=== PATIENT | female | born 1970 | race African-American/Black ===

== ENCOUNTER 2019-11-06 14:50 | Outpatient (CLI) | payer BC, SELFPAY ==
--- NOTE | ~2019-11-06 | MR_ITS ---
EXAMINATION: MR lumbar spine wo con EXAM DATE: 11/06/2019 15:52 INDICATION: Right leg pain, low back pain. Stroke in December. Lies right side. TECHNIQUE: Multi-sequential, multiplanar MR images of the lumbar spine were obtained without contrast . Sagittal T1, T2, T2 fat saturation images. Axial T2 weighted images. There is no prior study for comparison. FINDINGS: The vertebral bodies are aligned in the AP dimension. There is moderate disc disease L4-5, mild at the 2 levels above. The conus medullaris terminates at the L1/2 level and has normal signal i ntensity and morphology. There are no suspicious marrow signal abnormalities. Mild lumbar levoscolio sis. Paraspinal soft tissue is unremarkable. Level by level evaluation: T12-L1: Disc does not extend beyond the endplate margin. Facet arthropathy: Mild. Neural foraminal stenosis: No stenosis. Central canal stenosis: No stenosis. L1-L2: There is a minimal diffuse disc bulge. Facet arthropathy: Mild. Neural foraminal stenosis: No stenosis. Central canal stenosis: No stenosis. L2-L3: There is a mild diffuse disc bulge. Facet arthropathy: Mild to moderate. Neural foraminal stenosis: No stenosis. Central canal stenosis: No stenosis. L3-L4: There is a mild diffuse disc bulge. Facet arthropathy: Mild to moderate. Neural foraminal stenosis: Mild bilateral. Central canal stenosis: Mild. L4-L5: There is a mild to moderate diffuse disc bulge. Facet arthropathy: Moderate. Neural foraminal stenosis: Moderate right, mild to moderate left. Central canal stenosis: Mild to moderate. L5-S1: There is a mild diffuse disc bulge. Facet arthropathy: Mild to moderate. Neural foraminal stenosis: No stenosis. Central canal stenosis: No stenosis. IMPRESSION: 1. L4-5 moderate disc disease and right neural foraminal stenosis. 2. Lesser spondylosis above. Reviewed, dictated and finalized at location B.
== END 2019-11-06 14:51 | disposition home or self-care (01) ==
PROVIDERS: PCP Nurse Practitioner Family; Visit Provider Student in an Organized Health Care Education/Training Program
DX: M51.9 Unspecified thoracic, thoracolumbar and lumbosacral intervertebral disc disorder (principal); M48.061 Spinal stenosis, lumbar region without neurogenic claudication
CPT/HCPCS: 72148

== ENCOUNTER 2021-01-09 00:21 | Day surgery (SDC) | payer BC, SELFPAY ==
[2020-12-25 13:48] VITALS: BMI 49.6
[2021-01-09 12:51] VITALS: BMI 50.5
[2021-01-09 13:13] VITALS: BP 135/75; PULSE 62; RESP 18; TEMP 36.5; O2SAT 95
[2021-01-09 13:16] LABS: Glucose Point of Care 107 mg/dl (65-105)
[2021-01-09] MEDS: LACTATED RINGERS 1,000 ML 150 ML IV CONT (13:28)
--- NOTE | 2021-01-09 13:34 | PM.HPGS ---
History of Present Illness History of Present Illness Consent: Risks, benefits, and alternatives have been discussed and questions answered. Patient agrees to proceed with procedure. Chief complaint: neoplasm screening Narrative: Jessica Monzon is a 50 year old female here for screening colonoscopy Review of Systems Constitutional: Constitutional: Denies headache(s) and Denies weakness Eyes: Eyes: Denies blurry vision ENT: Reports Normal hearing present, Denies headache(s) and Denies neck pain Cardiovascular: Cardiovascular: Denies chest pain and Denies dyspnea Respiratory: Respiratory: Denies dyspnea Gastrointestinal: Gastrointestinal: Reports no additional gastrointestinal complaints Genitourinary: Genitourinary: Denies dysuria Musculoskeletal: Musculoskeletal: Denies neck pain Integumentary/Breasts: Skin/Breast: Denies dry skin Neurologic: Reports Normal hearing present, Denies headache(s) and Denies weakness Psychiatric: Psychiatric: Denies anxiety Endocrine: Endocrine: Denies change in body appearance Hematologic/Lymphatic: Hematologic/Lymphatic: Denies easy bleeding Allergic/Immunologic: Allergic/Immunologic: Denies urticaria PMF Past Medical History Medical History (Updated 01/09/21 @ 13:34 by Clifton Durbin MD) Colon cancer screening Family History Family History (Updated 02/25/16 @ 14:53 by DOCTOR UNKNOWN) Mother Family history of malignant neoplasm of bone Family history of malignant neoplasm of breast in first degree relative Depression Asthma Family history of emphysema Grandparent Family history of cardiovascular disease Social History Social History Smoking packs per day: 0.5 Smoking cigarettes per day: 10.0 Years smoked: 10 Smoking pack-years: 5.00 Smoking status: Former smoker Tobacco type: cigarettes Second hand tobacco smoke exposure: Yes Smoking end date: 03/21/00 Alcohol intake: current Living arrangements: with family Spiritual care concerns: No Meds Home Medications and Allergies Home Medications Medication Instructions Recorded Confirmed Type albuterol sulfate 2 inh INHALATION QID PRN 12/25/20 01/09/21 History aspirin [Aspir-81] 81 mg PO DAILY 12/25/20 01/09/21 History atorvastatin 80 mg PO DAILY 12/25/20 01/09/21 History ferrous sulfate [FeroSul] 325 mg PO DAILY 12/25/20 01/09/21 History hydroxyzine HCl 50 mg PO BID 12/25/20 01/09/21 History lamotrigine 150 mg PO HS 12/25/20 01/09/21 History losartan 50 mg PO DAILY 12/25/20 01/09/21 History metformin 500 mg PO BID 12/25/20 01/09/21 History propranolol 40 mg PO DAILY 12/25/20 01/09/21 History semaglutide [Ozempic] 0.5 mg SUBCUT WEEKLY 12/25/20 01/09/21 History trazodone 150 mg PO HS 12/25/20 01/09/21 History vortioxetine [Trintellix] 5 mg PO DAILY 12/25/20 01/09/21 History Allergies Allergy/AdvReac Type Severity Reaction Status Date / Time No Known Allergies Allergy Unknown Unverified 01/09/21 12:49 Vital Signs Vital Signs - 24 hr 01/09/21 13:13 Temperature 97.7 F Pulse Rate 62 Respiratory Rate 18 Blood Pressure 135/75 Pulse Oximetry 95 Exam Const: General: comfortable and no acute distress HENMT: General nose exam: Normal nares present Eyes: General: appearance normal, both eyes and all related structures Neck: Neck: no JVD Resp: Auscultation: clear to auscultation bilaterally Cardio: Rate: regular rate Rhythm: regular rhythm GI: Inspection: non-distended GI Palp: Yes Soft to palpation Skin: General skin exam: normal color Neuro: General: gait normal Speech: normal speech Extrem: General: normal to inspection Psych: Mental Status: mental status grossly normal Assessment and Plan Assessment and plan (1) Colon cancer screening: Code(s): Z12.11 - Encounter for screening for malignant neoplasm of colon Status: Acute Assessment and Plan: colonoscopy
--- NOTE | 2021-01-09 13:36 | WPDANESEPPF ---
Anes - Initial Pre Proc Eval Procedure: Operation Date: 01/09/21 13:30 Proposed Procedures p Screening Colonoscopy - Clitfon Durbin MD Date/Time: 01/09/21 13:36 Surgeon: Clifton Durbin MD Pre Op Diagnosis: neoplasm screening Patient Data Age: 50 Gender: F Height: 1.83 m Weight: 169 kg Last Vital Signs Temp 97.7 F 01/09/21 13:13 Pulse 62 01/09/21 13:13 Resp 18 01/09/21 13:13 BP 135/75 01/09/21 13:13 Pulse Ox 95 01/09/21 13:13 Allergies Allergy/AdvReac Type Severity Reaction Status Date / Time No Known Allergies Allergy Unknown Unverified 01/09/21 12:49 Home Medications Medication Instructions Recorded Confirmed Type albuterol sulfate 2 inh INHALATION QID PRN 12/25/20 01/09/21 History aspirin [Aspir-81] 81 mg PO DAILY 12/25/20 01/09/21 History atorvastatin 80 mg PO DAILY 12/25/20 01/09/21 History ferrous sulfate [FeroSul] 325 mg PO DAILY 12/25/20 01/09/21 History hydroxyzine HCl 50 mg PO BID 12/25/20 01/09/21 History lamotrigine 150 mg PO HS 12/25/20 01/09/21 History losartan 50 mg PO DAILY 12/25/20 01/09/21 History metformin 500 mg PO BID 12/25/20 01/09/21 History propranolol 40 mg PO DAILY 12/25/20 01/09/21 History semaglutide [Ozempic] 0.5 mg SUBCUT WEEKLY 12/25/20 01/09/21 History trazodone 150 mg PO HS 12/25/20 01/09/21 History vortioxetine [Trintellix] 5 mg PO DAILY 12/25/20 01/09/21 History Laboratory Tests 01/09/21 13:11 POC Capillary Glucose 107 mg/dl H mg/dl (65-105) Patient hx anesthesia problems: none Family hx anesthesia problems: none Results Review: All pre-operative results and documents have been reviewed as part of the pre-operative evaluation. [facility] Past Medical History Medical History (Updated 01/09/21 @ 13:34 by Clifton Durbin MD) Colon cancer screening Family History Family History (Updated 02/25/16 @ 14:53 by DOCTOR UNKNOWN) Mother Family history of malignant neoplasm of bone Family history of malignant neoplasm of breast in first degree relative Depression Asthma Family history of emphysema Grandparent Family history of cardiovascular disease Social History Social History Smoking packs per day: 0.5 Smoking cigarettes per day: 10.0 Years smoked: 10 Smoking pack-years: 5.00 Smoking status: Former smoker Tobacco type: cigarettes Second hand tobacco smoke exposure: Yes Smoking end date: 03/21/00 Alcohol intake: current Living arrangements: with family Spiritual care concerns: No Anes - Eval Final PreProcedure Day of Procedure 01/09/21 13:36 Patient weight: super morbidly obese Heart: regular rate and rhythm Lungs: clear to auscultation Airway: Mallampati scale class III Neurological: alert and oriented Last oral intake: >/= 8 hours ASA classification: IV Emergent: no Anesthetic plan: proceed Anesthesia type and monitoring: general GIVS and standard monitoring Results Review: All pre-operative results and documents have been reviewed as part of the pre-operative evaluation. Informed Consent: The patient's anesthetic plan and its attendant risks and benefits were discussed with the patient/family/POA. Questions were solicited and answers provided to the satisfaction of the patient/family/POA.
[2021-01-09 13:59] VITALS: BP 118/70; PULSE 78; RESP 18; O2SAT 100
[2021-01-09 14:09] VITALS: BP 133/75; PULSE 63; RESP 18; O2SAT 100
[2021-01-09 14:16] VITALS: BP 129/75; PULSE 55; RESP 18; O2SAT 100
== END 2021-01-09 14:30 | disposition home or self-care (01) ==
PROVIDERS: PCP Student in an Organized Health Care Education/Training Program; Visit Provider Internal Medicine Gastroenterology
PROC: 0DJD8ZZ Inspection of Lower Intestinal Tract, Via Natural or Artificial Opening Endoscopic (ICD-10-PCS; CPT 45378; principal; 2021-01-09 13:30)
DX: Z12.11 Encounter for screening for malignant neoplasm of colon (principal); K64.8 Other hemorrhoids; Z79.82 Long term (current) use of aspirin; Z79.84 Long term (current) use of oral hypoglycemic drugs; Z79.51 Long term (current) use of inhaled steroids; Z87.891 Personal history of nicotine dependence; E66.01 Morbid (severe) obesity due to excess calories; Z68.43 Body mass index [BMI] 50.0-59.9, adult
CPT/HCPCS: 45378; 82948; J2704; J7120

== ENCOUNTER 2024-02-08 18:55 | Emergency (ER) | payer BC, SELFPAY ==
--- NOTE | ~2024-02-08 | XR_ITS ---
EXAMINATION: XR chest 2V DATE: 02/08/2024 19:47 INDICATION: Chest pain. TECHNIQUE: Frontal and lateral views of the chest were obtained. COMPARISON: Chest single view 07/26/2016 FINDINGS: There is no pneumonia, pleural effusion, or pneumothorax. The heart size is normal. IMPRESSION: 1. No acute cardiopulmonary disease. Reviewed, dictated and finalized at location A. [employer] INVESTIGATOR
--- NOTE | ~2024-02-08 | CT_ITS ---
EXAMINATION: CT brain wo con DATE: 02/08/2024 19:42 INDICATION: Left hemiparesis. Headache and dizziness. TECHNIQUE: Computed tomography (CT) of the head was performed without intravenous contrast. The mA wa s adjusted according to patient size. Iterative reconstruction technique was employed. The dose-lengt h product was 605.33 mGy-cm. COMPARISON: Head CT 07/28/2016, brain MRI 07/27/2016 FINDINGS: There is no intracranial hemorrhage, acute infarction, or abnormal intracranial mass lesion . The ventricles are normal in size. The paranasal sinuses are clear. The mastoid air cells are hardeep l. The orbits are normal. IMPRESSION: 1. Normal brain. Reviewed, dictated and finalized at location A. [employer] IMPRESSION: 1. Normal brain.
[2024-02-08 18:56] VITALS: BP 184/85; PULSE 85; RESP 18; TEMP 36.8; O2SAT 99
--- NOTE | 2024-02-08 19:00 | ECG_ITS ---
Test Date: 2024-02-08 19:07:02 Measurements Intervals [place] Rate: 71 P: 51 NV: 200 QRS: 15 QRSD: 111 T: 31 QT: 396 QTc: 432 Interpretive Statements SINUS RHYTHM INTRAVENTRICULAR CONDUCTION DELAY CONSIDER INFERIOR INFARCT, AGE INDETERMINATE BASELINE ARTIFACT- V6 ABNORMAL ECG No previous ECG available for comparison Electronically Signed On 02-09-2024 07:35:36 [employer] by Alfredo Rivas D.O.
--- NOTE | 2024-02-08 19:20 | ED.CHESTPAIN ---
HPI - Chest Pain General Chief Complaint: Chest Pain <Stephenie Box APRN - Last Filed: 02/08/24 19:28> Stated Complaint: chest pain, dizzy x 1 wk, seen for cc x 3 <Stephenie Box APRN - Last Filed: 02/08/24 19:28> Time Seen by Provider: 02/08/24 19:15 <Stephenie Box APRN - Last Filed: 02/08/24 19:28> Focused HPI: patient is a 54-year-old female who presents to the ER with high blood pressure, chest pain, headache, dizziness, right arm weakness, bilateral lower extremity numbness that all started on Tuesday. She reports that she went to the ER at [facility] on Tuesday where they did every test and couldn't find anything. Patient reports she takes her medications as scheduled at home and reports that her diabetes has been under control lately. She denies any recent fevers, urinary symptoms, alcohol or drug use. Pt reports she did have vision changes on Tuesday, but reports they have resolved. GENERAL: Well-appearing, well-nourished, and in no acute distress. HEAD: Normocephalic, atraumatic. CHEST: Clear to auscultation. ?No respiratory distress. HEART: Regular rate and rhythm.? NEURO: ?Alert and oriented x3. Decreased strength on L shoulder when pt asked to shrug. Strong human resources services specialist, cranial nerves intact. Patient screened in triage and initial orders placed.? ?Additional care and disposition to be based upon?diagnostic testing and treatment. <Stephenie Box APRN - Last Filed: 02/08/24 19:28> Source: patient <Wale Rosado PA-C - Last Filed: 02/09/24 01:08> Mode of arrival: ambulatory <LEILA Cornejo Last Filed: 02/09/24 01:08> Limitations: no limitations <LEILA Cornejo Last Filed: 02/09/24 01:08> History of Present Illness HPI narrative: Agree with triage note above <Wale Rosado PA-C - Last Filed: 02/09/24 01:08> Related Data Home Medications: Home Medications Medication Instructions Recorded Confirmed albuterol sulfate 90 mcg/actuation 2 inh inhalation QID PRN Dyspnea 12/25/20 01/09/21 aerosol inhaler aspirin 81 mg tablet,delayed 81 mg PO DAILY 12/25/20 01/09/21 release atorvastatin 80 mg tablet 80 mg PO DAILY 12/25/20 01/09/21 ferrous sulfate 325 mg (65 mg 325 mg PO DAILY 12/25/20 01/09/21 iron) tablet (FeroSul) hydroxyzine HCl 50 mg tablet 50 mg PO BID 12/25/20 01/09/21 lamotrigine 100 mg tablet 150 mg PO HS 12/25/20 01/09/21 losartan 50 mg tablet 50 mg PO DAILY 12/25/20 01/09/21 metformin 500 mg tablet,extended 500 mg PO BID 12/25/20 01/09/21 release 24 hr propranolol 40 mg tablet 40 mg PO DAILY 12/25/20 01/09/21 semaglutide 0.25 mg or 0.5 mg (2 0.5 mg subcut WEEKLY 12/25/20 01/09/21 mg/1.5 mL) subcutaneous pen injector (Ozempic) trazodone 150 mg tablet 150 mg PO HS 12/25/20 01/09/21 vortioxetine 5 mg tablet 5 mg PO DAILY 12/25/20 01/09/21 (Trintellix) <Stephenie Box, [place] - Last Filed: 02/08/24 19:28> Allergies/Adverse Reactions: Allergies Allergy/AdvReac Type Severity Reaction Status Date / Time No Known Allergies Allergy Unknown Unverified 01/09/21 12:49 <Stephenie Box APRN - Last Filed: 02/08/24 19:28> Review of Systems Review of Systems: All systems as dictated in HPI <Wale Rosado PA-C - Last Filed: 02/09/24 01:08> [facility] Past Medical History Medical History: Medical History (Updated 02/09/24 @ 00:01 by Background Ivelisse) Colon cancer screening <Stephenie Box APRN - Last Filed: 02/08/24 19:28> Family History Family History: Family History (Updated 02/25/16 @ 14:53 by DOCTOR UNKNOWN) Mother Family history of malignant neoplasm of bone Family history of malignant neoplasm of breast in first degree relative Depression Asthma Family history of emphysema Grandparent Family history of cardiovascular disease <Stephenie Box APRN - Last Filed: 02/08/24 19:28> Social History Social History: Social History Smoking packs per day: 0.5 Smoking cigarettes per day: 10.0 Years smoked: 10 Smoking pack-years: 5.00 Smoking status: Former smoker Tobacco type: cigarettes Second hand tobacco smoke exposure: Yes Smoking end date: 03/21/00 Alcohol intake: current Living arrangements: with family Spiritual care concerns: No <Stephenie Box APRN - Last Filed: 02/08/24 19:28> Exam Narrative: GENERAL: Well-appearing, well-nourished, and in no acute distress. HEAD: Normocephalic, atraumatic. EYES: PERRLA and EOMI. ENT: Nares clear, no rhinorrhea or epistaxis. Mucous membranes moist. Oropharynx without tonsillar hypertrophy exudate or other lesions. NECK: Supple. No adenopathy or masses. CHEST: No respiratory distress. Clear to auscultation. No wheezes rales or rhonchi HEART: Regular rate and rhythm. No murmur heard. Normal peripheral pulses. ABDOMEN: Soft, nontender, nondistended, normal active bowel sounds. MSK: Normal range of motion. No edema. SKIN: Warm, dry, no rash. NEURO: Alert and oriented x4. No focal deficits. PSYCH: Anxious mood. Poor eye contact. Appropriate affect. Cooperative. <Wale Rosado PA-C - Last Filed: 02/09/24 01:08> Course Vital Signs Vital signs: Vital Signs Temperature 98.3 F 02/08/24 18:56 Pulse Rate 85 02/08/24 18:56 Respiratory Rate 18 02/08/24 18:56 Blood Pressure 184/85 H 02/08/24 18:56 Pulse Oximetry 99 02/08/24 18:56 Oxygen Delivery Room Air 02/08/24 18:56 Temperature 98.3 F 02/08/24 18:56 Pulse Rate 72 02/08/24 23:08 Respiratory Rate 17 02/08/24 23:08 Blood Pressure 176/80 H 02/08/24 23:08 Pulse Oximetry 99 02/08/24 23:08 Oxygen Delivery Room Air 02/08/24 23:07 <Stephenie Box APRN - Last Filed: 02/08/24 19:28> Vital Signs Temperature 98.3 F 02/08/24 18:56 Pulse Rate 85 02/08/24 18:56 Respiratory Rate 18 02/08/24 18:56 Blood Pressure 184/85 H 02/08/24 18:56 Pulse Oximetry 99 02/08/24 18:56 Oxygen Delivery Room Air 02/08/24 18:56 Temperature 98.3 F 02/08/24 18:56 Pulse Rate 72 02/08/24 23:08 Respiratory Rate 17 02/08/24 23:08 Blood Pressure 176/80 H 02/08/24 23:08 Pulse Oximetry 99 02/08/24 23:08 Oxygen Delivery Room Air 02/08/24 23:07 <Wale Rosado PA-C - Last Filed: 02/09/24 01:08> MDM - Chest Pain MDM Narrative Medical decision making narrative: This is a 54-year-old female presents to the ED for chief complaint of chest pain. Vitals show elevated blood pressure but otherwise normal. Exam shows patient does appear anxious but is otherwise benign. This is patient's 3rd visit the past week for chest pain. She just was admitted and had a chest pain observation at another hospital. They repeated the ER workup at the same hospital yesterday with no acute findings. Lab work today is unremarkable including normal troponin. Patient's symptoms are most likely consistent with acute anxiety rather than cardiopulmonary cause. Heart score is 2. D-dimer is negative. Chest x-ray and CT brain are negative for acute findings Discussed the above findings with the patient. Patient will be discharged in stable condition. Supportive measures discussed and return precautions given. Patient is understanding and agreeable with plan for discharge with PCP follow-up. <Wale Rosado PA-C - Last Filed: 02/09/24 01:08> Lab Data Result diagrams: 02/08/24 19:32 02/08/24 19:32 <Stephenie Box APRN - Last Filed: 02/08/24 19:28> Labs: Lab Results 02/08/24 02/08/24 02/08/24 Range/Units 19:32 19:32 19:35 WBC 8.7 (4.5-10.0) K/mm3 RBC 4.75 (4.2-5.4) M/mm3 Hgb 12.0 (12.0-15.0) g/dL Hct 38.5 (37.0-47.0) % MCV 81.1 (80-100) fl MCH 25.3 L (26-34) pg MCHC 31.2 L (32-36) g/dl RDW 15.3 H (11.5-14.5) % Plt Count 291 (150-375) k/mm3 MPV 11.5 H (7.4-10.4) fl Immature Gran % (Auto) 0.3 (0-0.5) % Neut % (Auto) 66.1 (45.5-73.1) % Lymph % (Auto) 27.7 (18.3-44.2) % [place] % (Auto) 4.7 (2.6-8.5) % Eos % (Auto) 1.0 (0-4.4) % Baso % (Auto) 0.2 (0.2-1.2) % Lymph # (Auto) 2.41 (0.9-3.2) K/mm3 [place] # (Auto) 0.4 (0.1-0.6) K/mm3 Eos # (Auto) 0.1 (0-0.3) K/mm3 Baso # (Auto) 0.0 (0.0-0.1) K/mm3 Abs Immat Gran (auto) 0.03 (0.00-0.031) K/mm3 Absolute Neuts (auto) 5.7 (1.3-6.7) K/mm3 Absolute Nucleated RBC 0.000 (0.0-0.012) K/mm3 Nucleated RBC % 0.0 (0.0-0.2) % PT 14.0 (11.1-14.7) Seconds INR 1.0 APTT 34.1 (22.3-36.8) Seconds D-Dimer 0.32 (<0.48) ug/mL Sodium 142 (137-145) mmol/L Potassium 4.0 (3.4-5.0) mmol/L Chloride 108 H (98-107) mmol/L Carbon Dioxide 26 (22-30) mmol/L Anion Gap 8 (4-12) mmol/L BUN 16 (7-17) mg/dL Creatinine 0.90 (0.7-1.0) mg/dL Estim Creat Clear Calc 108 ml/min Estimated GFR > 60 (59 - ) Glucose 100 (65-110) mg/dL Hemoglobin A1c 6.1 H (<5.7) % Calcium 9.0 (8.4-10.2) mg/dL Total Bilirubin 0.4 (0.2-1.3) mg/dL AST 21 (14-36) U/L ALT 17 (6-35) U/L Alkaline Phosphatase 170 H (38-126) U/L Troponin I < 0.012 Pending (0.000-0.034) ng/mL NT-Pro-B Natriuret Pep 56 (19.9-100) pg/mL Total Protein 9.0 H (6.3-8.2) g/dL Albumin 4.1 (3.5-5.1) g/dL Lipase 108 (23-300) U/L TSH (Reflex) 4.300 (0.465-4.68) uIU/mL Free T4 1.07 (0.78-2.19) ng/dL Total T3 1.27 (0.97-1.69) NG/ML Influenza A (RT-PCR) (Negative) Influenza B (RT-PCR) (Negative) RSV (RT-PCR) (Negative) SARS-CoV-2 RNA (RT-PCR) (Negative) 02/08/24 Range/Units 20:43 WBC (4.5-10.0) K/mm3 RBC (4.2-5.4) M/mm3 Hgb (12.0-15.0) g/dL Hct (37.0-47.0) % MCV (80-100) fl MCH (26-34) pg MCHC (32-36) g/dl RDW (11.5-14.5) % Plt Count (150-375) k/mm3 MPV (7.4-10.4) fl Immature Gran % (Auto) (0-0.5) % Neut % (Auto) (45.5-73.1) % Lymph % (Auto) (18.3-44.2) % [place] % (Auto) (2.6-8.5) % Eos % (Auto) (0-4.4) % Baso % (Auto) (0.2-1.2) % Lymph # (Auto) (0.9-3.2) K/mm3 [place] # (Auto) (0.1-0.6) K/mm3 Eos # (Auto) (0-0.3) K/mm3 Baso # (Auto) (0.0-0.1) K/mm3 Abs Immat Gran (auto) (0.00-0.031) K/mm3 Absolute Neuts (auto) (1.3-6.7) K/mm3 Absolute Nucleated RBC (0.0-0.012) K/mm3 Nucleated RBC % (0.0-0.2) % PT (11.1-14.7) Seconds INR APTT (22.3-36.8) Seconds D-Dimer (<0.48) ug/mL Sodium (137-145) mmol/L Potassium (3.4-5.0) mmol/L Chloride (98-107) mmol/L Carbon Dioxide (22-30) mmol/L Anion Gap (4-12) mmol/L BUN (7-17) mg/dL Creatinine (0.7-1.0) mg/dL Estim Creat Clear Calc ml/min Estimated GFR (59 - ) Glucose (65-110) mg/dL Hemoglobin A1c (<5.7) % Calcium (8.4-10.2) mg/dL Total Bilirubin (0.2-1.3) mg/dL AST (14-36) U/L ALT (6-35) U/L Alkaline Phosphatase (38-126) U/L Troponin I (0.000-0.034) ng/mL NT-Pro-B Natriuret Pep (19.9-100) pg/mL Total Protein (6.3-8.2) g/dL Albumin (3.5-5.1) g/dL Lipase (23-300) U/L TSH (Reflex) (0.465-4.68) uIU/mL Free T4 (0.78-2.19) ng/dL Total T3 (0.97-1.69) NG/ML Influenza A (RT-PCR) Negative (Negative) Influenza B (RT-PCR) Negative (Negative) RSV (RT-PCR) Negative (Negative) SARS-CoV-2 RNA (RT-PCR) Negative (Negative) <Stephenie Cesia Box, CRM DYNAMICS DEVELOPER - Last Filed: 02/08/24 19:28> Lab Results 02/08/24 02/08/24 02/08/24 Range/Units 19:32 19:32 19:35 WBC 8.7 (4.5-10.0) K/mm3 RBC 4.75 (4.2-5.4) M/mm3 Hgb 12.0 (12.0-15.0) g/dL Hct 38.5 (37.0-47.0) % MCV 81.1 (80-100) fl MCH 25.3 L (26-34) pg MCHC 31.2 L (32-36) g/dl RDW 15.3 H (11.5-14.5) % Plt Count 291 (150-375) k/mm3 MPV 11.5 H (7.4-10.4) fl Immature Gran % (Auto) 0.3 (0-0.5) % Neut % (Auto) 66.1 (45.5-73.1) % Lymph % (Auto) 27.7 (18.3-44.2) % [place] % (Auto) 4.7 (2.6-8.5) % Eos % (Auto) 1.0 (0-4.4) % Baso % (Auto) 0.2 (0.2-1.2) % Lymph # (Auto) 2.41 (0.9-3.2) K/mm3 [place] # (Auto) 0.4 (0.1-0.6) K/mm3 Eos # (Auto) 0.1 (0-0.3) K/mm3 Baso # (Auto) 0.0 (0.0-0.1) K/mm3 Abs Immat Gran (auto) 0.03 (0.00-0.031) K/mm3 Absolute Neuts (auto) 5.7 (1.3-6.7) K/mm3 Absolute Nucleated RBC 0.000 (0.0-0.012) K/mm3 Nucleated RBC % 0.0 (0.0-0.2) % PT 14.0 (11.1-14.7) Seconds INR 1.0 APTT 34.1 (22.3-36.8) Seconds D-Dimer 0.32 (<0.48) ug/mL Sodium 142 (137-145) mmol/L Potassium 4.0 (3.4-5.0) mmol/L Chloride 108 H (98-107) mmol/L Carbon Dioxide 26 (22-30) mmol/L Anion Gap 8 (4-12) mmol/L BUN 16 (7-17) mg/dL Creatinine 0.90 (0.7-1.0) mg/dL Estim Creat Clear Calc 108 ml/min Estimated GFR > 60 (59 - ) Glucose 100 (65-110) mg/dL Hemoglobin A1c 6.1 H (<5.7) % Calcium 9.0 (8.4-10.2) mg/dL Total Bilirubin 0.4 (0.2-1.3) mg/dL AST 21 (14-36) U/L ALT 17 (6-35) U/L Alkaline Phosphatase 170 H (38-126) U/L Troponin I < 0.012 Pending (0.000-0.034) ng/mL NT-Pro-B Natriuret Pep 56 (19.9-100) pg/mL Total Protein 9.0 H (6.3-8.2) g/dL Albumin 4.1 (3.5-5.1) g/dL Lipase 108 (23-300) U/L TSH (Reflex) 4.300 (0.465-4.68) uIU/mL Free T4 1.07 (0.78-2.19) ng/dL Total T3 1.27 (0.97-1.69) NG/ML Influenza A (RT-PCR) (Negative) Influenza B (RT-PCR) (Negative) RSV (RT-PCR) (Negative) SARS-CoV-2 RNA (RT-PCR) (Negative) 02/08/24 Range/Units 20:43 WBC (4.5-10.0) K/mm3 RBC (4.2-5.4) M/mm3 Hgb (12.0-15.0) g/dL Hct (37.0-47.0) % MCV (80-100) fl MCH (26-34) pg MCHC (32-36) g/dl RDW (11.5-14.5) % Plt Count (150-375) k/mm3 MPV (7.4-10.4) fl Immature Gran % (Auto) (0-0.5) % Neut % (Auto) (45.5-73.1) % Lymph % (Auto) (18.3-44.2) % [place] % (Auto) (2.6-8.5) % Eos % (Auto) (0-4.4) % Baso % (Auto) (0.2-1.2) % Lymph # (Auto) (0.9-3.2) K/mm3 [place] # (Auto) (0.1-0.6) K/mm3 Eos # (Auto) (0-0.3) K/mm3 Baso # (Auto) (0.0-0.1) K/mm3 Abs Immat Gran (auto) (0.00-0.031) K/mm3 Absolute Neuts (auto) (1.3-6.7) K/mm3 Absolute Nucleated RBC (0.0-0.012) K/mm3 Nucleated RBC % (0.0-0.2) % PT (11.1-14.7) Seconds INR APTT (22.3-36.8) Seconds D-Dimer (<0.48) ug/mL Sodium (137-145) mmol/L Potassium (3.4-5.0) mmol/L Chloride (98-107) mmol/L Carbon Dioxide (22-30) mmol/L Anion Gap (4-12) mmol/L BUN (7-17) mg/dL Creatinine (0.7-1.0) mg/dL Estim Creat Clear Calc ml/min Estimated GFR (59 - ) Glucose (65-110) mg/dL Hemoglobin A1c (<5.7) % Calcium (8.4-10.2) mg/dL Total Bilirubin (0.2-1.3) mg/dL AST (14-36) U/L ALT (6-35) U/L Alkaline Phosphatase (38-126) U/L Troponin I (0.000-0.034) ng/mL NT-Pro-B Natriuret Pep (19.9-100) pg/mL Total Protein (6.3-8.2) g/dL Albumin (3.5-5.1) g/dL Lipase (23-300) U/L TSH (Reflex) (0.465-4.68) uIU/mL Free T4 (0.78-2.19) ng/dL Total T3 (0.97-1.69) NG/ML Influenza A (RT-PCR) Negative (Negative) Influenza B (RT-PCR) Negative (Negative) RSV (RT-PCR) Negative (Negative) SARS-CoV-2 RNA (RT-PCR) Negative (Negative) <Wale Rosado PA-C - Last Filed: 02/09/24 01:08> ECG Data EKG #1: ECG completion date: 02/08/24 <LEILA Cornejo Last Filed: 02/09/24 01:08> ECG completion time: 19:07 <LEILA Cornejo Last Filed: 02/09/24 01:08> Prior ECG tracings: available for review <Wale Rosado PA-C - Last Filed: 02/09/24 01:08> Interpretation: Sinus rhythm Rate 71 Normal QRS Normal QTC No acute ischemic findings <Wale Rosado PA-C - Last Filed: 02/09/24 01:08> Discharge Plan Discharge Clinical Impression: Atypical chest pain, Anxiety <Stephenie Box APRN - Last Filed: 02/08/24 19:28> Patient Disposition: Home, Self-Care <Stephenie Box APRN - Last Filed: 02/08/24 19:28> Condition: Stable <Stephenie Box APRN - Last Filed: 02/08/24 19:28> Instructions: Antibiotic Form <Stephenie Box APRN - Last Filed: 02/08/24 19:28> Additional Instructions: Exam and imaging are reassuring overall. Please follow-up with PCP on this issue. Take hydroxyzine as needed for anxiety. If you have any new or worsening symptoms please return to the ER for further evaluation. <Stephenie Box APRN - Last Filed: 02/08/24 19:28> Prescriptions: New hydroxyzine HCl 50 mg tablet 50 mg PO BID PRN (Reason: anxiety) Qty: 30 0RF hydroxyzine HCl 50 mg tablet 50 mg PO BID PRN (Reason: anxiety) Qty: 30 0RF No Action losartan 50 mg tablet 50 mg PO DAILY atorvastatin 80 mg tablet 80 mg PO DAILY hydroxyzine HCl 50 mg tablet 50 mg PO BID aspirin [Aspir-81] 81 mg Tablet,Delayed Release (Dr/Ec) 81 mg PO DAILY propranolol 40 mg tablet 40 mg PO DAILY trazodone 150 mg tablet 150 mg PO HS ferrous sulfate [FeroSul] 325 mg (65 mg iron) tablet 325 mg PO DAILY albuterol sulfate 90 mcg/actuation HFA aerosol inhaler 2 inh INHALATION QID PRN (Reason: Dyspnea) metformin 500 mg tablet extended release 24 hr 500 mg PO BID lamotrigine 100 mg tablet 150 mg PO HS Trintellix 5 mg Tablet 5 mg PO DAILY Ozempic 0.25 mg or 0.5 mg(2 mg/1.5 mL) pen injector 0.5 mg SUBCUT WEEKLY Rx Instructions: tuesday <Stephenie Box APRN - Last Filed: 02/08/24 19:28> Follow-up/Referrals: Nehemias,DO Sd [Primary Care Provider] - <Stephenie Box APRN - Last Filed: 02/08/24 19:28> Time of Disposition: 22:51 <Stephenie Box APRN - Last Filed: 02/08/24 19:28> 22:51 <Wale Rosado PA-C - Last Filed: 02/09/24 01:08> Quality HEART score for chest pain patients History: slightly suspicious <Wale Rosado PA-C - Last Filed: 02/09/24 01:08> ECG: normal <Wale Rosado PA-C - Last Filed: 02/09/24 01:08> Age: > 45 and < 65 years <Wale Rosado PA-C - Last Filed: 02/09/24 01:08> Risk factors: 1 or 2 risk factors <Wale Rosado PA-C - Last Filed: 02/09/24 01:08> Troponin: < or = to 1x normal limit <Wale Rosado PA-C - Last Filed: 02/09/24 01:08> Heart score: 2 <RAVI Cornejo-Julianna - Last Filed: 02/09/24 01:08>
[2024-02-08 20:01] LABS: Basophils Percent Auto 0.2 % (0.2-1.2); Eosinophils Absolute Auto 0.1 K/mm3 (0-0.3); Hematocrit 38.5 % (37.0-47.0); Immature Granulocyte Absolute 0.03 K/mm3 (0.00-0.031); Immature Granulocyte Percent A 0.3 % (0-0.5); Lymphocytes Absolute Auto 2.41 K/mm3 (0.9-3.2); Lymphocytes Percent Auto 27.7 % (18.3-44.2); Mean Corpuscular HGB Conc 31.2 g/dl (32-36); Mean Corpuscular Hemoglobin 25.3 pg (26-34); Mean Corpuscular Volume 81.1 fl (80-100); Mean Platelet Volume 11.5 fl (7.4-10.4); Monocytes Absolute Auto 0.4 K/mm3 (0.1-0.6); Monocytes Percent Auto 4.7 % (2.6-8.5); Neutrophils Absolute Auto 5.7 K/mm3 (1.3-6.7); Neutrophils Percent Auto 66.1 % (45.5-73.1); Platelet Count Result 291 k/mm3 (150-375); Red Blood Count 4.75 M/mm3 (4.2-5.4); Red Cell Distribution Width 15.3 % (11.5-14.5); White Blood Count 8.7 K/mm3 (4.5-10.0)
[2024-02-08 20:13] LABS: Partial Thromboplastin Time 34.1 Seconds (22.3-36.8)
[2024-02-08 20:14] LABS: Alanine Aminotransferase 17 U/L (6-35); Albumin Level 4.1 g/dL (3.5-5.1); Alkaline Phosphatase 170 U/L (38-126); Anion Gap 8 mmol/L (4-12); Aspartate Amino Transferase 21 U/L (14-36); Bilirubin,Total 0.4 mg/dL (0.2-1.3); Blood Urea Nitrogen 16 mg/dL (7-17); Carbon Dioxide 26 mmol/L (22-30); Chloride 108 mmol/L (98-107); Estimated CRCL calculation 108 ml/min; Estimated Glomerular Filt Rate > 60; Glucose 100 mg/dL (65-110); Lipase 108 U/L (23-300); Sodium 142 mmol/L (137-145)
[2024-02-08 20:25] LABS: NT Pro B Type Natriuretic Pept 56 pg/mL (19.9-100); Troponin I < 0.012 ng/mL (0.000-0.034)
[2024-02-08 20:27] LABS: D Dimer 0.32 ug/mL (<0.48)
[2024-02-08 21:17] LABS: Hemoglobin A1C 6.1 % (<5.7)
[2024-02-08 21:34] LABS: Influenza A QL RT-PCR Negative (Negative); Influenza B QL RT-PCR Negative (Negative); RSV RNA, RT-PCR Negative (Negative); SARS-CoV-2 RNA PCR Negative (Negative)
[2024-02-08 22:50] LABS: Free T4 Free Thyroxine Reflex 1.07 ng/dL (0.78-2.19)
[2024-02-08 23:07] VITALS: O2SAT 97
[2024-02-08 23:08] VITALS: BP 176/80; PULSE 72; RESP 17; O2SAT 99
[2024-02-08 23:53] LABS: Total Triiodothyronine (T3) 1.27 NG/ML (0.97-1.69)
== END 2024-02-08 23:22 | disposition home or self-care (01) ==
LOC: ANHED 22:59
PROVIDERS: Registered Nurse; Emergency Provider Physician Assistant; PCP Student in an Organized Health Care Education/Training Program
DX: R07.89 Other chest pain (principal); F41.9 Anxiety disorder, unspecified; Z20.822 Contact with and (suspected) exposure to COVID-19; E11.9 Type 2 diabetes mellitus without complications
CPT/HCPCS: 36415; 70450; 71046; 80053; 83036; 83690; 83880; 84439; 84443; 84480; 84484; 85025; 85380; 85610; 85730; 87637; 93005; 99284